=== PATIENT | female | born 1995 ===

== ENCOUNTER 2021-06-16 14:22 | Inpatient (IN) | payer BC ==
[2021-06-16] VITALS (23 sets, daily range): BP systolic 104–143; BP diastolic 59–91; PULSE 68–93; TEMP 97.9–98.7
[~2021-06-16] VITALS: Ht 165.1 cm; Wt 91.2 kg
[2021-06-16] MEDS ORDERED: ZOLOFT 100MG100 MG PO ×2 (15:14→15:20)
[2021-06-16] MEDS ORDERED: ZYRTEC 10MG10 MG PO (15:16)
[2021-06-16] MEDS ORDERED: LEVOXYL0.125 MG PO (15:18)
[2021-06-16] MEDS ORDERED: PROAIR HFA0.09 MG/AC IH (15:19)
[2021-06-16] MEDS ORDERED: PRENATAL TABLET PO (15:19)
[2021-06-16] MEDS ORDERED: SINGULAIR 110 MG/TAB PO (15:20)
[2021-06-16 16:32] LABS: BASO % 0.1 % (0.0-2.0); EOS # 0.1 K/mm3 (0.0-0.7); EOS % 0.9 % (0.0-4.0); GRAN # 6.6 K/mm3 (1.4-6.5); GRAN % 70.8 % (42.2-75.2); HEMOGLOBIN 12.4 g/dl (12.5-16.0); LYMPH # 2.2 K/mm3 (1.2-3.4); LYMPH % 23.2 % (20.0-51.0); MEAN CELL VOLUME 87 fl (80.0-100.0); MEAN CORPUSCULAR HEMOGLOBIN 30 pg (27-31); MEAN CORPUSCULAR HGB CONC 35 g/dl (33.0-37.0); MEAN PLATELET VOLUME 11.1 fl (7.4-10.4); MONO # 0.4 K/mm3 (0.1-0.6); MONO % 4.7 % (1.7-9.3); PLATELET COUNT 337 K/mm3 (130-400); RED BLOOD COUNT 4.14 M/mm3 (4.10-5.30); REDCELL DISTRIBUTION WIDTH-CV 12.5 % (11.5-14.5)
[2021-06-16 16:33] LABS: HEMATOCRIT 35.9 % (37.0-47.0)
[2021-06-17] VITALS (47 sets, daily range): BP systolic 96–155; BP diastolic 52–89; PULSE 60–116; TEMP 97.6–98.8
[2021-06-18 00:35] VITALS: BP 124/86; PULSE 74; TEMP 97.7
[2021-06-18 07:48] VITALS: BP 118/75; PULSE 69; TEMP 97.1
[2021-06-18] MEDS ORDERED: IBU800 M1 PO (08:29)
[2021-06-18 11:41] VITALS: BP 126/75; PULSE 78; TEMP 97.6
[2021-06-18 15:00] VITALS: BP 127/86; PULSE 73; TEMP 97.9
[2021-06-18 20:47] VITALS: BP 126/81; PULSE 71; TEMP 97.6
[2021-06-19 07:05] VITALS: BP 121/75; PULSE 53; TEMP 97.5
[2021-06-19 11:40] VITALS: BP 128/80; PULSE 69
== END 2021-06-19 15:30 | disposition home or self-care (01) | DRG 807 ==
LOC: LDR 14:22 → OB 14:31
PROVIDERS: ADMIT Student in an Organized Health Care Education/Training Program
PROC: 10E0XZZ Delivery of Products of Conception, External Approach (ICD-10-PCS; principal; 2021-06-17)
PROC: 0KQM0ZZ Repair Perineum Muscle, Open Approach (ICD-10-PCS; 2021-06-17)
DX: O99.284 Endocrine, nutritional and metabolic diseases complicating childbirth (principal); Z37.0 Single live birth; E03.9 Hypothyroidism, unspecified; O99.344 Other mental disorders complicating childbirth; F41.9 Anxiety disorder, unspecified; O99.52 Diseases of the respiratory system complicating childbirth; J45.909 Unspecified asthma, uncomplicated; O99.214 Obesity complicating childbirth; O69.81X0 Labor and delivery complicated by cord around neck, without compression, not applicable or unspecified; O70.1 Second degree perineal laceration during delivery; Z3A.37 37 weeks gestation of pregnancy
CPT/HCPCS: J0290; J2590; J2795; J7120